=== PATIENT | male | born 1995 | race Caucasian/White ===

== ENCOUNTER 2018-12-03 18:50 | Emergency (ER) | payer SELFPAY, MEDICAID ==
[2018-12-03] MEDS: HYDROCODONE/APAP (5/325) TAB PO (22:46)
[2018-12-03] MEDS: LIDOCAINE 1% (MPF) 5 ML VIAL INFIL (23:03)
== END 2018-12-04 00:34 | disposition home or self-care (01) ==
LOC: FTE 12-04 00:34
DX: L02.11 Cutaneous abscess of neck (principal)
CPT/HCPCS: 10060; 99283-25

== ENCOUNTER 2018-12-05 08:02 | Emergency (ER) | payer MEDICAID | END 2018-12-05 10:22 | disposition home or self-care (01) | LOC: FTE 08:02 | DX: L02.11 Cutaneous abscess of neck (principal) | CPT/HCPCS: 99281; Z7502 ==

== ENCOUNTER 2018-12-08 15:04 | Emergency (ER) | payer MEDICAID | END 2018-12-08 17:58 | disposition home or self-care (01) | LOC: FTE 15:04 | DX: Z48.01 Encounter for change or removal of surgical wound dressing (principal) | CPT/HCPCS: 99281; Z7502 ==

== ENCOUNTER 2019-04-22 08:39 | Emergency (ER) | payer SELFPAY, OTHER, MEDICAID | END 2019-04-22 09:05 | disposition home or self-care (01) | LOC: FTE 08:39 | DX: F41.9 Anxiety disorder, unspecified (principal) | CPT/HCPCS: 99283 ==